=== PATIENT | female | born 2000 | race Caucasian/White ===

== ENCOUNTER 2022-03-30 13:32 | Emergency (ER) | payer OTHER, SELFPAY ==
[2022-03-30 13:49] VITALS: BP 112/68; PULSE 81; RESP 18; TEMP 36.2; O2SAT 99; BMI 18.9
--- NOTE | 2022-03-30 13:59 | ED.GENADULT ---
HPI - General Adult General Time Seen by Provider: 14:00 Date Seen: 03/30/22 Chief complaint: Ear/Nose/Throat Problem Stated complaint: Ear Pain Time Seen by Provider: 03/30/22 13:34 Source: patient Mode of arrival: ambulatory Limitations: no limitations History of Present Illness HPI narrative: Patient is a 21-year-old female from [place] attending [employer]. She has an upper respiratory infection for which she has tested negative for COVID a home test. She has frequent otitis media when she gets a cold and she has right ear pain. No other specific complaints, no shortness of breath, no chest pain, no skin rashes no nuchal rigidity. Related Data Previous Rx's Medication Instructions Recorded amoxicillin 500 mg capsule 500 mg PO BID #20 caps 03/30/22 Allergies Allergy/AdvReac Type Severity Reaction Status Date / Time No Known Drug Allergies Allergy Verified 03/30/22 13:53 Review of Systems Status of ROS: Reports: 6 or more systems reviewed and unremarkable except as noted in History and below PFSH PFS Social History Smoking Status: Never smoker How often do you have a drink containing alcohol: 2-4 times a month AUDIT-C Alcohol total score: 2 Non-prescribed substance use: denies use Exam Narrative: Exam Narrative: Objective: Vital signs unremarkable general patient apparent distress HEENT is unremarkable other than right otitis media throat appears clear neck is supple Const: Vital Signs, click to edit/add: Vital Signs - 24 hr 03/30/22 13:49 Temperature 97.2 F L Pulse Rate [Pulse Oximeter] 81 Respiratory Rate 18 Blood Pressure [Le ft Upper Arm] 112/68 Pulse Oximetry 99 Oxygen Delivery Me thod Room Air Course Vital Signs Vital signs: Initial Vital Signs Temperature 97.2 F L 03/30/22 13:49 Temperature Source Temporal Artery Scan 03/30/22 13:49 Pulse Rate 81 03/30/22 13:49 Respiratory Rate 18 03/30/22 13:49 Blood Pressure 112/68 03/30/22 13:49 Blood Pressure Mean 82 03/30/22 13:49 Blood Pressure Position Sitting 03/30/22 13:49 Pulse Oximetry 99 03/30/22 13:49 Oxygen Delivery Method 03/30/22 13:49 Vital Signs Temperature 97.2 F L 03/30/22 13:49 Pulse Rate 81 03/30/22 13:49 Respiratory Rate 18 03/30/22 13:49 Blood Pressure 112/68 03/30/22 13:49 Pulse Oximetry 99 03/30/22 13:49 Oxygen Delivery Method 03/30/22 13:49 Temperature 97.2 F L 03/30/22 13:49 Pulse Rate 81 03/30/22 13:49 Respiratory Rate 18 03/30/22 13:49 Blood Pressure 112/68 03/30/22 13:49 Pulse Oximetry 99 03/30/22 13:49 Oxygen Delivery Method 03/30/22 13:49 Medical Decision Making MDM Narrative Medical decision making narrative: Patient is an upper respiratory infection right otitis media, has responded well to medications in the past. Has no allergies to medicines. Will give her amoxicillin times 10 days Tylenol Motrin as needed recheck with primary care not improving the next 2-3 days certainly sooner change concerns worsening return to the ED. Discharge Plan Discharge Clinical Impression: Otitis media Patient Disposition: Home, Self-Care Condition: Stable Additional Instructions: Light activity, Advil or Tylenol as needed, amoxicillin times 10 days, return if problems concerns or difficulty. Activity Level: No Restrictions Discharge Diet: Regular Prescriptions: New amoxicillin 500 mg capsule 500 mg PO BID Qty: 20 0RF Stand Alone Forms: [employer] Info Instructions
== END 2022-03-30 14:28 | disposition home or self-care (01) ==
PROVIDERS: Emergency Provider Family Medicine
DX: H66.91 Otitis media, unspecified, right ear (principal)
CPT/HCPCS: 99282; 99283

== ENCOUNTER 2022-06-19 15:38 | Emergency (ER) | payer OTHER, SELFPAY ==
[2022-06-19 15:46] VITALS: BP 104/74; RESP 16; TEMP 36.8; O2SAT 98; BMI 18.9
--- NOTE | 2022-06-19 16:14 | ED_ITS ---
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 She is working a chemistry lab, had her goggles on, thought she might had something irritating her eyes and had washed out. Since then she had a little bit irritation right eye laterally. Today this morning it burned a little bit today and has not hurt at all. She has no redness of the eye. She has otherwise been healthy. Related Data Previous Rx's Medication Instructions Recorded amoxicillin 500 mg capsule 500 mg PO BID #20 caps 03/30/22 Allergies Allergy/AdvReac Type Severity Reaction Status Date / Time No Known Drug Allergies Allergy Verified 06/19/22 15:45 Review of Systems Narrative: No history of eye trauma PFSH PFS Social History Smoking Status: Never smoker How often do you have a drink containing alcohol: 2-4 times a month AUDIT-C Alcohol total score: 2 Non-prescribed substance use: denies use Exam Narrative: Exam Narrative: Objective: Gross visual acuity is normal Vital signs unremarkable No foreign body noted in the right eye no conjunctival irritation or inflammation Fluorescein stain after tetracaine drops placed showed no evidence of foreign body or corneal abrasion. Const: Vital Signs, click to edit/add: Vital Signs - 24 hr 06/19/22 15:46 Temperature 98.2 F Respiratory Rate 16 Blood Pressure [Ri ght Upper Arm] 104/74 Pulse Oximetry 98 Oxygen Delivery Me thod Room Air Course Vital Signs Vital signs: Initial Vital Signs Temperature 98.2 F 06/19/22 15:46 Temperature Source Temporal Artery Scan 06/19/22 15:46 Respiratory Rate 16 06/19/22 15:46 Blood Pressure 104/74 06/19/22 15:46 Blood Pressure Mean 84 06/19/22 15:46 Blood Pressure Position Sitting 06/19/22 15:46 Pulse Oximetry 98 06/19/22 15:46 Oxygen Delivery Method 06/19/22 15:46 Vital Signs Temperature 98.2 F 06/19/22 15:46 Respiratory Rate 16 06/19/22 15:46 Blood Pressure 104/74 06/19/22 15:46 Pulse Oximetry 98 06/19/22 15:46 Oxygen Delivery Method 06/19/22 15:46 Temperature 98.2 F 06/19/22 15:46 Respiratory Rate 16 06/19/22 15:46 Blood Pressure 104/74 06/19/22 15:46 Pulse Oximetry 98 06/19/22 15:46 Oxygen Delivery Method 06/19/22 15:46 Medical Decision Making MDM Narrative Medical decision making narrative: Patient appears to have some kind of conjunctiva irritation, but appears i mproved this afternoon. No evidence of injection redness or foreign body or corneal abrasion at this point. Recommend observation recheck as needed, if they have other problems or concerns they could try the [facility] and get a oil distributor tender or volunteer firefighter eval. Discharge Plan Discharge Clinical Impression: Irritation of right eye Patient Disposition: Home, Self-Care Condition: Stable Additional Instructions: Observation, if continued symptoms tomorrow would recommend follow-up with her clinic eye center. We will give you the number for that facility. Basically observation at this point. Return as needed. Please call [facility] at [phone]. Activity Level: No Restrictions Discharge Diet: Regular Prescriptions: No Action amoxicillin 500 mg capsule 500 mg PO BID Qty: 20 0RF Follow Up/Referrals: Provider,Not a Local [Primary Care Provider] - Stand Alone Forms: [employer] Info Instructions Discharge Comment: pt given phone number for [facility] and instructed to call today
== END 2022-06-19 16:41 | disposition home or self-care (01) ==
LOC: ED 16:25
PROVIDERS: Emergency Provider Family Medicine
DX: H57.11 Ocular pain, right eye (principal)
CPT/HCPCS: 99282; 99283; A9270

== ENCOUNTER 2022-09-19 08:23 | Emergency (ER) | payer OTHER, SELFPAY ==
[2022-09-19 08:30] VITALS: BP 116/81; PULSE 101; RESP 16; TEMP 36.3; O2SAT 97; BMI 18.3
--- NOTE | 2022-09-19 08:37 | ED.ABDPAIN ---
HPI - Abdominal Pain General Time Seen by Provider: 08:37 Date Seen: 09/19/22 Chief Complaint: Abdominal Pain Stated Complaint: food poisoning Time Seen by Provider: 09/19/22 08:37 Source: patient and RN notes reviewed Mode of arrival: ambulatory Limitations: no limitations History of Present Illness HPI narrative: Patient is a very pleasant 22-year-old [employer] student originally from [place] who comes to the emergency room with vomiting and diarrhea. Patient notes that she ate some leftover [employer] food last evening. At 0500 hours she woke up with extreme nausea and then had the onset of vomiting and diarrhea. She states that she does not normally get sick and is quite a healthy person. She notes that she did feel chilled but she does not know of any fever. She does have abdominal pain but vomiting or a bowel movement relieves the discomfort. She states that she has blood in both her vomit and diarrhea. She has not had any ill contacts that she knows of. She does agree she has a sore throat but only from the vomiting she states. Patient is sexually active but always uses a condom and is on control. Has not been late for her period. Related Data Home Medications Medication Instructions Recorded Confirmed No Known Home Medications 09/19/22 09/19/22 Allergies Allergy/AdvReac Type Severity Reaction Status Date / Time No Known Drug Allergies Allergy Verified 09/19/22 08:29 Review of Systems Status of ROS Reports: 10 or more systems reviewed and unremarkable except as noted in History and below Const Reports: chills and fatigue; Denies: fever Eyes Denies: change in vision ENMT Reports: throat pain; Denies: neck pain, throat swelling, difficulty swallowing or hoarseness Cardio Denies: chest pain, swelling of feet/ankles or shortness of breath with exertion Resp Denies: shortness of breath or cough GI Reports: abdominal pain, nausea, vomiting, diarrhea and blood in stool; Denies: difficulty swallowing Denies: painful urination Musculo Denies: back pain or neck pain Neuro Denies: headache Endo Reports: fatigue Allergy/Immuno Denies: throat swelling PFSH PFSH Social History Smoking Status: Never smoker Do you use any of these nicotine containing products: None Second hand tobacco smoke exposure: No How often do you have a drink containing alcohol: 2-4 times a month AUDIT-C Alcohol total score: 2 Non-prescribed substance use: denies use service: No Exam Narrative: Exam Narrative: Patient is alert and oriented. Slightly pale in appearance. EOM is full. Oral cavity with moist mucous membranes. Irregularity of the tongue question old healed laceration. Head is atraumatic normocephalic. Neck is supple. No lymphadenopathy. Heart with a regular rate and rhythm and lungs are clear in all lung poe. No CVA tenderness with percussion. Palpation of the abdomen shows it to be soft without any discomfort. Lower extremities without edema. No rashes noted on limbs. Const: Vital Signs, click to edit/add: Vital Signs - 24 hr 09/19/22 08:30 09/19/22 09:34 09/19/22 11:04 Temperature 97.4 F L 98.9 F Pulse Rate [Pulse Oximeter] 101 H 105 H 108 H Respiratory Rate 16 16 16 Blood Pressure [Ri ght Upper Arm] 116/81 111/62 106/74 Pulse Oximetry 97 100 98 Oxygen Delivery Me thod Room Air Room Air Room Air Documenting provider has reviewed patient's vital signs: yes Course Course Hospital Course: At this time differential diagnosis includes but is not limited to food-borne illness, gastroenteritis, biliary colic, cholecystitis, small-bowel obstruction. Would recommend placement of IV common fluids as well as antiemetics and electrolyte and blood draw. Reevaluation(s) Reevaluation #1: Patient noted to be much improved after 1 L of normal saline and 4 mg of IV Zofran. She states that a small amount of her nausea is coming back we will treat was 0.25 mg of IV Ativan. Vital Signs Vital signs: Initial Vital Signs Temperature 97.4 F L 09/19/22 08:30 Temperature Source Temporal Artery Scan 09/19/22 08:30 Pulse Rate 101 H 09/19/22 08:30 Pulse Rhythm Regular 09/19/22 08:30 Pulse Strength 3+ Normal 09/19/22 08:30 Respiratory Rate 16 09/19/22 08:30 Blood Pressure 116/81 09/19/22 08:30 Blood Pressure Mean 92 09/19/22 08:30 Blood Pressure Position Supine 09/19/22 08:30 Pulse Oximetry 97 09/19/22 08:30 Oxygen Delivery Method Room Air 09/19/22 08:30 Vital Signs Temperature 97.4 F L 09/19/22 08:30 Pulse Rate 101 H 09/19/22 08:30 Respiratory Rate 16 09/19/22 08:30 Blood Pressure 116/81 09/19/22 08:30 Pulse Oximetry 97 09/19/22 08:30 Oxygen Delivery Method Room Air 09/19/22 08:30 Temperature 98.9 F 09/19/22 11:04 Pulse Rate 108 H 09/19/22 11:04 Respiratory Rate 16 09/19/22 11:04 Blood Pressure 106/74 09/19/22 11:04 Pulse Oximetry 98 09/19/22 11:04 Oxygen Delivery Method Room Air 09/19/22 11:04 MDM - Abdominal Pain MDM Narrative Medical decision making narrative: 1. Vomiting and diarrhea -likely gastroenteritis. Labs reassuring as are vital signs. Patient feeling that she can go home at this time. She did end up receiving 2 L of normal saline as well as 4 mg of IV Zofran. Will discharge home with [facility] Zofran 4 mg ODT 1 tab Q 6-8 hours p.r.n. 10.. Return to the emergency room for worsening symptoms. 2. Disposition-home at this time. Note conversation regarding blood in vomit-patient states she saw a very small drop of blood in her vomit. No subsequent episodes to visualize here. In regards to blood in her stool she felt that she saw some blood in the toilet and then when she wiped. However she now realizes she that she has her period. Hemoglobin reassuring. Return for worsening symptoms. Lab Data Attestation: I reviewed the patient's lab results. Labs: Lab Results 09/19/22 09/19/22 Range/Units 09:00 09:30 WBC 10.54 (4.50-11.00) K/uL RBC 4.98 (4.00-5.20) m/uL Hgb 14.6 (12.0-16.0) gm/dL Hct 42.7 (33.0-51.0) % MCV 86 (80-100) fL MCH 29 (26-34) pg MCHC 34 (32-36) gm/dL RDW Coeff of La 12.6 (11.5-15.5) % Plt Count 221 (140-440) K/uL Neut % (Auto) 92.4 H (42.0-72.0) % Lymph % (Auto) 2.4 L (20-44) % [place] % (Auto) 4.6 (0.0-11.0) % Eos % (Auto) 0.4 (0.0-7.0) % Baso % (Auto) 0.1 (0.0-3.0) % Neut # (Auto) 9.70 H (1.7-7.0) K/uL Lymph # (Auto) 0.30 L (0.90-2.90) K/uL [place] # (Auto) 0.50 (0.00-0.90) K/UL Eos # (Auto) 0.04 (0.00-0.50) K/uL Baso # (Auto) 0.01 (0.00-0.30) K/uL Sodium 140 (135-149) mmol/L Potassium 3.5 L (3.6-5.1) mmol/L Chloride 107 (96-114) mmol/L Carbon Dioxide 23 (20-32) mmol/L BUN 15 (5-24) mg/dL Creatinine 0.6 (0.5-1.5) mg/dL Estimated Creat Clear 117.81 Estimated GFR 132 ml/min Glucose 105 (60-115) mg/dL Calcium 9.1 (8.4-10.6) mg/dL Total Bilirubin 0.9 (0.1-1.5) mg/dL AST 21 (12-35) U/L ALT 15 (4-35) U/L Alkaline Phosphatase 48 (40-150) U/L Total Protein 7.3 (6.0-8.3) g/dL Albumin 4.7 (3.3-5.0) g/dL Lipase 56 (23-300) U/L HCG, Qual Negative (Negative) Urine Color Yellow (Yellow) Urine Appearance Clear (Clear) Urine pH 6.0 (5.0-8.5) Ur Specific [place] 1.015 (1.000-1.030) Urine Protein Negative (Negative) Urine Glucose (UA) Negative (Negative) Urine Ketones 1+ A (Negative) Urine Blood 1+ A (Negative) Urine Nitrite Negative (Negative) Urine Bilirubin Negative (Negative) Urine Urobilinogen 0.2 (0.2-1.0) Ur Leukocyte Esterase Negative (Negative) Urine RBC 0-2 (0-2) Urine WBC 0-2 (0-5) Ur Squamous Epith Cells Few (None-Few) Urine Bacteria None (None) Discharge Plan Discharge Clinical Impression: Nausea vomiting and diarrhea Patient Disposition: Home, Self-Care Condition: Improved Additional Instructions: Rest. Push fluids. You are likely contagious as a viral gastroenteritis or stomach flu but I cannot rule out the possibility of food borne infection. Zofran is a medication that may be used for nausea. Return to the emergency room for any worsening symptoms. Prescriptions: No Action No Known Home Medications Follow Up/Referrals: Provider,Not a Local [Primary Care Provider] - Stand Alone Forms: [employer] Info Instructions
[2022-09-19] MEDS: 0.9 % SODIUM CHLORIDE 1000 ml 1,000 ML IV ×2 (09:03→09:50)
[2022-09-19] MEDS: ONDANSETRON 2 MG/ML inj 4 MG IVP (09:06)
[2022-09-19 09:10] LABS: Basophils Absolute Auto 0.01 K/uL (0.00-0.30); Basophils Percent Auto 0.1 % (0.0-3.0); Eosinophils Absolute Auto 0.04 K/uL (0.00-0.50); Eosinophils Percent Auto 0.4 % (0.0-7.0); Hematocrit 42.7 % (33.0-51.0); Hemoglobin* 14.6 gm/dL (12.0-16.0); Immature Granulocytes Abs Auto 0.01 K/uL (0.00-0.30); Immature Granulocytes Pct Auto 0.1 %; Lymphocytes Percent Auto 2.4 % (20-44); Mean Corpuscular HGB Conc 34 gm/dL (32-36); Mean Corpuscular Hemoglobin 29 pg (26-34); Mean Corpuscular Volume 86 fL (80-100); Monocytes Percent Auto 4.6 % (0.0-11.0); Neutrophils Percent Auto 92.4 % (42.0-72.0); Platelet Count* 221 K/uL (140-440); RDW Coefficient of Variation % 12.6 % (11.5-15.5); Red Blood Count 4.98 m/uL (4.00-5.20); White Blood Count* 10.54 K/uL (4.50-11.00)
--- NOTE | 2022-09-19 09:10 | PC.NURSE ---
Had episode of vomiting. Small amount of bile. No blood noted.
[2022-09-19 09:13] LABS: Slide Review Reflex No
[2022-09-19 09:24] LABS: Albumin* 4.7 g/dL (3.3-5.0); Chloride* 107 mmol/L (96-114); Sodium* 140 mmol/L (135-149)
[2022-09-19 09:25] LABS: Potassium* 3.5 mmol/L (3.6-5.1)
[2022-09-19 09:27] LABS: Alanine Aminotransferase* 15 U/L (4-35); Alkaline Phosphatase* 48 U/L (40-150); Aspartate Amino Transferase* 21 U/L (12-35); Bilirubin Total* 0.9 mg/dL (0.1-1.5); Blood Urea Nitrogen* 15 mg/dL (5-24); Carbon Dioxide* 23 mmol/L (20-32); Creatinine* 0.6 mg/dL (0.5-1.5); Est. Creatinine Clearance* 117.81; Estimated Glomerular Filt Rate 132 ml/min; Glucose* 105 mg/dL (60-115); Lipase* 56 U/L (23-300); Total Protein* 7.3 g/dL (6.0-8.3)
[2022-09-19 09:28] LABS: Calcium* 9.1 mg/dL (8.4-10.6)
[2022-09-19 09:34] VITALS: BP 111/62; PULSE 105; RESP 16; O2SAT 100
--- NOTE | 2022-09-19 09:50 | PC.NURSE ---
Patient unable to void. MD notified. Patient also stated that she just got her period too. second bolus started.
[2022-09-19 10:31] LABS: Appearance Urine Clear (Clear); Bilirubin Urine Negative (Negative); Blood Urine 1+ (Negative); Color Urine Yellow (Yellow); Glucose Urine Negative (Negative); Ketones Urine 1+ (Negative); Leukocyte Esterase Urine Negative (Negative); Nitrite Urine Negative (Negative); Protein Urine Negative (Negative); Specific Gravity Urine 1.015 (1.000-1.030); Urobilinogen Urine 0.2 (0.2-1.0)
[2022-09-19 10:46] LABS: RBC Urine 0-2 (0-2); Squamous Epithelial Cell Urine Few (None-Few); WBC Urine 0-2 (0-5)
[2022-09-19 10:47] LABS: HCG Qualitative* Negative (Negative)
[2022-09-19 11:04] VITALS: BP 106/74; PULSE 108; RESP 16; TEMP 37.2; O2SAT 98
[2022-09-19] MEDS: LORazepam 2 MG/ML inj 0.25 MG IVP (11:10)
== END 2022-09-19 11:16 | disposition home or self-care (01) ==
PROVIDERS: Emergency Provider Family Medicine
DX: R11.10 Vomiting, unspecified (principal); R19.7 Diarrhea, unspecified
CPT/HCPCS: 36415; 80053; 81001; 83690; 84703; 85025; 96361; 96374; 96375; 99284; J2060; J2405; J7030